=== PATIENT | female | born 1940 ===

== ENCOUNTER 2023-04-25 09:45 | Inpatient (IN) | payer OTHER ==
[~2023-04-25] VITALS: Ht 157.5 cm; Wt 54.4 kg
[2023-04-25] MEDS ORDERED: COZAAR25 MG PO (10:55)
[2023-04-25] MEDS ORDERED: CALCIUM + D3 E1 EACH PO (10:55)
[2023-04-25] MEDS ORDERED: LEVO-T88 MCG PO (10:55)
[2023-04-25] MEDS ORDERED: CARAFATE1 GM PO (10:56)
[2023-04-25] MEDS ORDERED: PEPCID40 MG PO (10:56)
[2023-04-25] MEDS ORDERED: PROTONIX40 MG PO (10:56)
[2023-05-01 13:54] LABS: HEMATOCRIT 33.5 % (36.0-45.00); HEMOGLOBIN 10.8 g/dL (12.0-15.00); MEAN CELL VOLUME 87.7 fL (80.00-100.00); MEAN CORPUSCULAR HEMOGLOBIN 28.2 pg (27.00-32.0); MEAN CORPUSCULAR HGB CONC 32.2 g/dl (32.0-36.0); PLATELET COUNT 263 K/uL (150-450); RED BLOOD COUNT 3.81 M/uL (4.00-6.00); RED CELL DISTRIBUTION WIDTH 14.2 % (11.5-14.5)
[2023-05-02 06:44] LABS: HEMATOCRIT 31.9 % (36.0-45.00); HEMOGLOBIN 10.8 g/dL (12.0-15.00); MEAN CELL VOLUME 85.6 fL (80.00-100.00); MEAN CORPUSCULAR HGB CONC 33.8 g/dl (32.0-36.0); PLATELET COUNT 242 K/uL (150-450); RED BLOOD COUNT 3.73 M/uL (4.00-6.00); RED CELL DISTRIBUTION WIDTH 14.4 % (11.5-14.5)
[2023-05-02 07:11] LABS: ALBUMIN 2.7 gm/dL (3.4-5.0); CALCIUM 8.6 mg/dL (8.5-10.1); CREATININE SERUM 0.56 mg/dL (0.55-1.02); GFR 103.39; MAGNESIUM 2.2 mg/dL (1.8-2.4); PHOSPHOROUS 3.1 mg/dL (2.5-4.9); POTASSIUM 3.89 mEq/L (3.5-5.1)
== END 2023-05-02 17:21 | disposition home or self-care (01) | DRG 331 ==
LOC: SURH 05-01 05:50 → O/R 05-01 05:50 → SURG 05-01 09:45 → SURH 05-01 13:25 → SURG 05-01 13:45 → SURH 05-02 17:21
PROVIDERS: ADMIT Colon & Rectal Surgery; ATTEND Colon & Rectal Surgery
PROC: 0DQR0ZZ Repair Anal Sphincter, Open Approach (ICD-10-PCS; 2023-05-01)
PROC: 0DBP8ZZ Excision of Rectum, Via Natural or Artificial Opening Endoscopic (ICD-10-PCS; 2023-05-01)
PROC: 0JQC0ZZ Repair Pelvic Region Subcutaneous Tissue and Fascia, Open Approach (ICD-10-PCS; principal; 2023-05-01 13:45)
DX: K62.3 Rectal prolapse (principal); Z20.822 Contact with and (suspected) exposure to COVID-19; N81.6 Rectocele